=== PATIENT | female | born 1985 | race Caucasian/White ===

== ENCOUNTER → 2024-01-03 | Outpatient (CLI) | payer MEDICAID ==
[2024-01-03 13:00] LABS: HCG, SERUM QUANTITATIVE 124.8 MIU/ML (<4.2)
[2024-01-03 13:47] LABS: PROGESTERONE 336.38 NG/ML
== END ==
LOC: M LAB 12:05
DX: N91.2 Amenorrhea, unspecified (principal); Z87.59 Personal history of other complications of pregnancy, childbirth and the puerperium

== ENCOUNTER → 2024-01-09 | Outpatient (CLI) | payer MEDICAID ==
[2024-01-09 11:00] LABS: PROGESTERONE 57.66 NG/ML
[2024-01-09 11:17] LABS: HCG, SERUM QUANTITATIVE 3104.5 MIU/ML (<4.2)
== END ==
LOC: M LAB 09:31
PROVIDERS: ATTEND Obstetrics & Gynecology
DX: N91.2 Amenorrhea, unspecified (principal); Z87.59 Personal history of other complications of pregnancy, childbirth and the puerperium

== ENCOUNTER → 2024-01-11 | Outpatient (CLI) | payer MEDICAID ==
[2024-01-11 12:32] LABS: PROGESTERONE 58.35 NG/ML
[2024-01-11 12:43] LABS: HCG, SERUM QUANTITATIVE 8212.5 MIU/ML (<4.2)
== END ==
LOC: M LAB 10:43
PROVIDERS: ATTEND Obstetrics & Gynecology
DX: N91.2 Amenorrhea, unspecified (principal); Z87.59 Personal history of other complications of pregnancy, childbirth and the puerperium

== ENCOUNTER → 2024-05-05 | Outpatient (CLI) | payer MEDICAID ==
[2024-05-05 16:18] LABS: HEMATOCRIT 38.5 % (36.0-47.0); HEMOGLOBIN 12.3 g/dl (12.0-15.5); MEAN CORPUSCULAR HEMOGLOBIN 29.1 pg (27.0-33.0); MEAN CORPUSCULAR HGB CONC 31.9 g/dl (32.0-36.5); PLATELET COUNT, AUTOMATED 309 10^3/uL (150-450); RED BLOOD COUNT 4.23 10^6/uL (4.00-5.40); WHITE BLOOD COUNT 8.6 10^3/uL (4.0-10.0)
[2024-05-05 16:30] LABS: HEMOGLOBIN A1c 4.8 % (4.0-6.0)
[2024-05-05 16:46] LABS: PERCENT SATURATION 13.5 % (13.2-45.0)
[2024-05-05 16:50] LABS: FERRITIN 6.5 NG/ML (7.3-270.7); THYROID STIMULATING HORMONE 1.9 uIU/ML (0.55-4.78); TOTAL 25(OH) VITAMIN D 22.1 NG/ML (20.0-100.0)
[2024-05-05 16:51] LABS: FREE T4 1.26 NG/DL (0.89-1.76); PROLACTIN 8.07 NG/ML
[2024-05-07 14:53] LABS: CARDIOLIPIN IGA ANTIBODY < 2.0 APL-U/mL (<20.0); CARDIOLIPIN IGG ANTIBODY < 2.0 GPL-U/mL (<20.0); CARDIOLIPIN IGM ANTIBODY < 2.0 MPL-U/mL (<20.0)
[2024-05-10 23:42] LABS: PTT-LA 38 sec (<=40); dRVVT 39 sec (<=45)
== END ==
LOC: M LAB 15:38
PROVIDERS: ATTEND Obstetrics & Gynecology
DX: Z31.69 Encounter for other general counseling and advice on procreation (principal); F17.210 Nicotine dependence, cigarettes, uncomplicated; Z87.59 Personal history of other complications of pregnancy, childbirth and the puerperium